=== PATIENT | male | born 1995 | race African-American/Black ===

== ENCOUNTER 2018-02-28 01:07 | Emergency (ER) | payer MEDICAID ==
[~2018-02-28] VITALS: Ht 175.3 cm; Wt 95.5 kg
[~2018-02-28 01:07] MED LIST: NOCURR
== END 2018-02-28 02:00 | disposition home or self-care (01) ==
LOC: EMS 01:09
DX: Z02.89 Encounter for other administrative examinations (principal); F17.200 Nicotine dependence, unspecified, uncomplicated